=== PATIENT | male | born 1975 | race Caucasian/White ===

== ENCOUNTER 2017-05-09 10:26 | Emergency (ER) | payer OTHER ==
[2017-05-09 10:27] VITALS: BMI 29.2
[2017-05-09 10:40] VITALS: BP 137/85; PULSE 67; RESP 16; TEMP 98.4; O2SAT 97
--- NOTE | 2017-05-09 11:35 | C.PDOC ---
History Of Present Illness 42 y/o male presents to ED with complaints of Injury to Left thumb nail that occurred 11 days ago. Patient states he sliced Left thumb with a knife accidentally and is here for evaluation. Patient denies numbness, tingling, fever or any other complaints at this time. Time Seen by Provider: 05/09/17 11:12 Chief Complaint (Nursing): Upper Extremity Problem/Injury History Per: Patient History/Exam Limitations: no limitations Onset/Duration Of Symptoms: Days Current Symptoms Are (Timing): Still Present Past Medical History Reviewed: Historical Data, Nursing Documentation, Vital Signs Vital Signs: Last Vital Signs Temp 98.4 F 05/09/17 10:38 Pulse 67 05/09/17 10:38 Resp 16 05/09/17 10:38 BP 137/85 05/09/17 10:38 Pulse Ox 97 05/09/17 18:07 - [facility] Procedures TETANUS TOXOID ADMINIST (07/24/15) Family History: States: No Known Family Hx - Social History Hx Alcohol Use: Yes Hx Substance Use: No - Immunization History Hx Tetanus Toxoid Vaccination: No Hx Influenza Vaccination: No Hx Pneumococcal Vaccination: No Review Of Systems Constitutional: Negative for: Fever, Chills Gastrointestinal: Negative for: Nausea, Vomiting, Diarrhea Musculoskeletal: Positive for: Hand Pain Skin: Negative for: Rash Neurological: Negative for: Weakness, Dizziness Physical Exam - Physical Exam Appears: Non-toxic, No Acute Distress Skin: Normal Color, Warm Eye(s): bilateral: Normal Inspection Extremity: Capillary Refill (<2 seconds), No Deformity, Other ( Laceration through nail 7/8 and across nail, intact nail, dry blood under nail but no active bleeding, Full ROM) Pulses: Left Radial: Normal, Right Radial: Normal Neurological/Psych: Oriented x3, Normal Motor, Normal Sensation, Normal Reflexes ED Course And Treatment O2 Sat by Pulse Oximetry: 97 (RA) Pulse Ox Interpretation: Normal Medical Decision Making Medical Decision Making: Nail bed and Finger injury Recommended for patient to apply splint and natural healing, no removal of the nail necessary Disposition Counseled Patient/Family Regarding: Diagnosis, Need For Followup - Disposition Referrals: [facility] [Outside] [facility] [Outside] Disposition: HOME/ ROUTINE Disposition Time: 11:35 Condition: STABLE Additional Instructions: Keep splint on finger to protect nail. It will eventually fall off. Forms: General Discharge Instructions - Clinical Impression Clinical Impression: Injury of nail bed of left thumb - PA / SR. DIRECTOR PRODUCT MANAGEMENT / Resident Statement MD/DO has reviewed & agrees with the documentation as recorded. - Scribe Statement The provider has reviewed the documentation as recorded by the [facility] All medical record entries made by the [facility] were at my direction and personally dictated by me. I have reviewed the chart and agree that the record accurately reflects my personal performance of the history, physical exam, medical decision making, and the department course for this patient. I have also personally directed, reviewed, and agree with the discharge instructions and disposition.
== END 2017-05-09 11:43 | disposition home or self-care (01) ==
LOC: C.ER 10:26
DX: S69.92XA Unspecified injury of left wrist, hand and finger(s), initial encounter (principal); W26.0XXA Contact with knife, initial encounter